=== PATIENT | female | born 1975 | race Caucasian/White ===

== ENCOUNTER 2021-04-22 23:09 | Emergency (ER) | payer MEDICAID, SELFPAY ==
--- NOTE | 2021-04-22 00:04 | RAD_ITS ---
STUDY: X-RAY - PELVIS AND LEFT HIP REASON FOR EXAM: Female, 45 years old. hip pain TECHNIQUE: 3 views of the pelvis and hip. COMPARISON: None. FINDINGS: No acute fracture or dislocation. Severe degenerative change of the left hip. Moderate degenerative change of the right hip. Metallic IUD in the endometrial region. RAD/HIP, UNI W/ Pelvis 2-3 Views IMPRESSION: No acute findings. Remainder as above Electronically Signed: Figueroa Hendricks DO at 0:37 EDT Tel , Service support ,
[2021-04-22 23:09] VITALS: BP 156/93; PULSE 93; RESP 18; TEMP 36.4; O2SAT 100; BMI 28.3
--- NOTE | 2021-04-22 23:31 | RAD_ITS ---
STUDY: X-RAY - LUMBAR SPINE REASON FOR EXAM: Female, 45 years old. back pain TECHNIQUE: 3 view(s) of the lumbar spine were obtained. COMPARISON: None FINDINGS: Normal lumbar lordosis. There is no substantial scoliosis. There is a normal alignment of the vertebrae. There is multilevel endplate spondylosis of the lumbar vertebrae. There is multi-level degenerative disc disease with multi-level disc space narrowing. There is no demonstrated fracture. IVC filter in place The soft tissue structures are unremarkable. RAD/Lumbar Spine 2 or 3 Views IMPRESSION: Degenerative changes of the spine, as detailed above. Electronically Signed: Figueroa Hendricks DO at 0:40 EDT Tel , Service support ,
--- NOTE | 2021-04-22 23:31 | RAD_ITS ---
STUDY: X-RAY - LEFT KNEE REASON FOR EXAM: Female, 45 years old. pain TECHNIQUE: 4 view(s) of the knee. COMPARISON: None. FINDINGS: Normal visualized distal femur. Normal visualized proximal tibia and fibula. Normal proximal tibiofibular articulation. Normal medial femorotibial compartment. Normal lateral femorotibial compartment. Normal patellofemoral articulation. The soft tissue structures are unremarkable. RAD/Knee 4 or More Views IMPRESSION: Normal x-ray examination of the knee. Electronically Signed: Figueroa Hendricks DO at 0:39 EDT Tel , Service support ,
--- NOTE | 2021-04-22 23:32 | ED.VIS.FALL ---
HPI HPI - Fall History of Present Illness Chief Complaint: Fall Narrative Narrative: Patient presenting with left hip, knee, lower back pain. She states she fell at about 9 AM this morning. This was a mechanical fall as she tripped over bags. She states she landed on her left knee and then her left hip. Her back is been hurting her. She states she took a dose of ibuprofen earlier today. She she also states she took 3 Zanaflex over the course of the day. She is ambulatory with antalgic gait. Patient denies head injury or LOC. Patient does relate that she was previously in a pain contract with Dr. Abernathy for primary care physician. She states that she has not required anything for pain for years. She has not seen him in months. She states that she is not currently on any narcotic pain medication. She also states that she saw an orthopedic surgeon for evaluation of her left hip and she relates that they wanted to do a hip replacement however she never followed up for the treatment/surgery. She does not know whether this was a [place] physician or somebody in [place]. PFSH PFSH Medical History Cardiomyopathy Hypertension Pacemaker Seizures Smoker Home Medications NK 04/22/21 [History Last Taken Unknown] Allergy/AdvReac Type Severity Reaction Status Date / Time ketorolac tromethamine Allergy Shortness Verified 03/14/16 09:57 [From Toradol] of breath levofloxacin [From Levaquin] Allergy Rash Verified 03/14/16 09:57 naproxen Allergy Shortness Verified 03/14/16 09:57 of breath sulfamethoxazole Allergy Rash Verified 03/14/16 09:57 [From Septra] trimethoprim [From Septra] Allergy Rash Verified 03/14/16 09:57 doxycycline AdvReac Nausea/Vom/ Verified 03/14/16 09:57 Diarrhea tramadol HCl [From Ultram] AdvReac Other Verified 03/14/16 09:57 Social History Smoking Status: Current every day smoker tobacco type: cigarettes ROS ROS ED Constitutional Constitutional ED: Denies chills or fever(s) Eyes Eyes: Denies blurry vision or change in vision ENT ENT ED: Denies rhinorrhea or sore throat Cardiovascular Cardiovascular: Denies chest pain or palpitations Respiratory/Chest Respiratory/Chest: Denies cough or dyspnea Gastrointestinal Gastrointestinal: Denies abdominal pain, nausea or vomiting Genitourinary Genitourinary ED: Denies dysuria or hematuria Musculoskeletal Musculoskeletal: Reports back pain and other Details: Left knee and left hip pain Integumentary Denies Abrasions or rash Neurologic Neurologic: Denies headache(s) or paresthesias EXAM Physical Exam Const Vital Signs: 04/22/21 23:09 04/22/21 23:40 04/23/21 00:31 Temperature 97.6 F L Temperature Source Temporal Pulse Rate 93 89 Respiratory Rate 18 16 Respiratory Effort Normal Respiratory Depth Normal Respiratory Pattern Normal Blood Pressure 156/93 H 146/85 H Blood Pressure Mean 114 105 Pulse Ox 100 99 Oxygen Delivery Method Room Air Room Air Room Air Positive well nourished General Appearance ED: NAD HEENT Reports normocephalic atraumatic Eyes PERRL and EOMs intact bilaterally Resp normal respiratory effort and clear to auscultation bilaterally Cardio regular rate and regular rhythm GI non-tender Palpation: soft Extremity Extremity Narrative: Tenderness to palpation over the anterior portion of the proximal thigh. No pain over the left greater trochanter. Negative logroll. There is some tenderness midline over the patella. Patient has full range of motion in flexion, extension of both the left hip and the knee. She has antalgic gait. Neuro oriented x3 Sensorium / Orientation: alert Psych mental status grossly normal and thought process normal Skin Rashes: no rashes MDM MDM MDM Narrative Medical decision making narrative: Patient presents with pain in the lower back and the left hip and knee. Of note the patient has her face cover the whole time during the interview and does not make any eye contact. I had difficulty examining her left hip and left knee because she was laying on her left side and had to reproduce. Physically I do not see any any abnormalities but patient reports pain to the left hip and left knee after mechanical fall. Patient will given oxycodone and I will get x-rays of the lumbar spine, left hip, left knee. X-rays of the left hip, left knee, lumbar spine showed no acute process on my interpretation. There is no fractures or subluxations. Patient does have degenerative changes in each. The radiologist does agree. Reviewed the medical record for the patient he was just seen at [facility] for a similar story and had x-rays of the left hip and knee there which did show degenerative changes. She was referred for orthopedics. Her gabapentin was changed to 3 times a day. She reports that she has been off of her medications at home otherwise because she has not followed up with her primary care physician. After she received her oxycodone here and was down it x-ray she was not responding to the tech doing x-rays. The nurse did go down to talk to her and she did seem responsive then. Does seem to be only a short time. She is alert and awake on my reevaluation on return to the ER. I did discuss with her that her x-rays did not show anything new and that I had reviewed the record and saw she was just at [facility] and had similar x-rays as well as a similar story at that time. She states that due to her hip pain she has been falling a little bit more. She states that this makes it hurt because she is falling on it. We then did discuss that she has had pain in the left hip and knee for many years and that she was previously on chronic pain medication from her primary care physician. I do not believe it is appropriate to treat her chronic pain from the emergency room with more narcotics, and in addition to this the patient had an episode where she was not responding in the ER. I do not believe this is emergent but this may be due to the medications. Patient was counseled to follow-up with her primary care physician where she can get all her medications refilled and have her pain assessed. She is counseled to follow-up with the orthopedic surgeon she was referred to as well. Patient did request more pain medication in the ER however given her previous episode at x-ray I do not believe that it would be appropriate. Patient is discharged home in stable condition. Impression: 1. Mechanical fall 2. Left hip contusion 3. Left knee contusion 4. acute on chronic lower back pain Radiography Diagnostic Testing: Clinical Impression(s) from Imaging Studies Hip/Pelvis X-Ray 04/22/21 00:04 IMPRESSION: No acute findings. Remainder as above Electronically Signed: Figueroa Hendricks DO at 0:37 EDT Tel , Service support , Knee X-Ray 04/22/21 23:31 IMPRESSION: Normal x-ray examination of the knee. Electronically Signed: Figueroa Hendricks DO at 0:39 EDT Tel , Service support , Lumbar Spine X-Ray 04/22/21 23:31 IMPRESSION: Degenerative changes of the spine, as detailed above. Electronically Signed: Figueroa Hendricks DO at 0:40 EDT Tel , Service support , Discharge Plan Triage Chief Complaint: Fall ED Provider: Erik Cota Dx/Rx/DC Orders Instructions: ED Back Pain (Acute or Chronic), ED Contusion, Lower Extremity, ED Hip Contusion, ED Fall Prevention Prescriptions: No Action NK RF: 0 Primary Care Provider: Hernan Abernathy Referrals: Hernan Abernathy DO [Primary Care Provider] - Disposition Disposition: Home, Self Care
[2021-04-22] MEDS: oxyCODONE 5 MG Tablet PO (23:39)
--- NOTE | 2021-04-22 23:45 | ED.RN ---
pt missed last appointment with . meds were not refilled. has not taken home medications in 1 week.
[2021-04-23 00:31] VITALS: BP 146/85; PULSE 89; RESP 16; O2SAT 99
--- NOTE | 2021-04-23 00:37 | ED.RN ---
patient has requested additional pain medication. information given to assigned md. bryan villanueva, rn [id number]
[2021-04-23 01:19] VITALS: BP 134/80; PULSE 91; RESP 15; O2SAT 100
== END 2021-04-23 01:24 | disposition home or self-care (01) ==
PROVIDERS: Emergency Provider Student in an Organized Health Care Education/Training Program; PCP Family Medicine
DX: S70.02XA Contusion of left hip, initial encounter (principal); S80.02XA Contusion of left knee, initial encounter; G89.29 Other chronic pain; M54.50 Low back pain, unspecified; W18.09XA Striking against other object with subsequent fall, initial encounter; I10 Essential (primary) hypertension; Z95.0 Presence of cardiac pacemaker; F17.210 Nicotine dependence, cigarettes, uncomplicated; Z79.1 Long term (current) use of non-steroidal anti-inflammatories (NSAID); M47.816 Spondylosis without myelopathy or radiculopathy, lumbar region
CPT/HCPCS: 72100; 73502; 73564; 99283